=== PATIENT | male | born 2000 | race Two or more races ===

== ENCOUNTER → 2020-04-21 15:11 | Outpatient (BNVA) | payer SELFPAY | PROVIDERS: Visit Provider Physician Assistant Medical | DX: Z02.79 Encounter for issue of other medical certificate (principal) ==

== ENCOUNTER → 2020-05-10 10:52 | Outpatient (BNVA) | payer OTHER, SELFPAY | PROVIDERS: Visit Provider Physician Assistant | DX: S00.252A Superficial foreign body of left eyelid and periocular area, initial encounter (principal); W31.89XA Contact with other specified machinery, initial encounter | CPT/HCPCS: 92002; 99202 ==